=== PATIENT | male | born 1945 | race Caucasian/White ===

== ENCOUNTER → 2018-10-22 | Outpatient (CLI) | payer MEDICARE | END | disposition home or self-care (01) | LOC: RAH 14:18 | PROVIDERS: ATTEND Internal Medicine Critical Care Medicine | DX: M25.552 Pain in left hip (principal) | CPT/HCPCS: 73502 ==

== ENCOUNTER → 2018-11-16 | Outpatient (CLI) | payer MEDICARE | END | disposition home or self-care (01) | LOC: RAH 13:37 | PROVIDERS: ATTEND Internal Medicine Critical Care Medicine | DX: M25.452 Effusion, left hip (principal) | CPT/HCPCS: 73721 ==

== ENCOUNTER 2019-02-17 06:36 | Day surgery (SDC) | payer MEDICARE ==
[2019-02-11 16:34] VITALS: BP 176/74
[2019-02-11 16:36] LABS: EOSINOPHILS % (AUTO) 4.1 % (0.0-8.0); HEMATOCRIT 38.1 % (42-54); LYMPHOCYTES % (AUTO) 25.2 % (21.0-51.0); MEAN CORPUSCULAR HEMOGLOBIN 31.5 pg (27.0-33.0); MEAN CORPUSCULAR HGB CONC 34.6 g/dL (32.0-36.0); MEAN CORPUSCULAR VOLUME 91.1 fL (79-99); MONOCYTES % (AUTO) 9.2 % (3.0-13.0); NEUTROPHILS % (AUTO) 60.5 % (40.0-77.0); PLATELET COUNT (AUTO) 205 K/uL (130-400); RED BLOOD CELL COUNT(AUTO) 4.19 MIL/uL (4.50-6.20); RED CELL DISTRIBUTION WIDTH 14.1 % (11.0-15.5); WHITE BLOOD COUNT (AUTO) 8.2 K/uL (4.8-10.8)
[2019-02-11 16:55] LABS: CREATININE 0.9 mg/dL (0.5-1.5); POTASSIUM 3.9 mmol/L (3.5-5.1)
[~2019-02-17] VITALS: Ht 180.3 cm; Wt 111.3 kg
[2019-02-17] VITALS (19 sets, daily range): BP systolic 123–145; BP diastolic 58–72
[~2019-02-17 06:36] MED LIST: AMLO10TA7 PO; CARV6.25 PO; CEFAZOLIN 3GM /D5W 100ML 100 ML IV SCH; EPIN0.3P2 IM; LEVOTHYROXINE PO; LOSA1TAB54 PO; OMEP20CA10 PO; SULFAMETHOXAZOL PO
[2019-02-17] MEDS ORDERED: LIDOCAINE PF 2% 5ML ABBOJECT ONE (07:22)
[2019-02-17] MEDS ORDERED: FENTANYL CITRATE PF 50 MCG/1 ML 2ML VIAL ONE (07:22)
[2019-02-17] MEDS ORDERED: SUCCINYLCHOLINE 200MG/10ML SYR ONE (07:22)
[2019-02-17] MEDS ORDERED: ROCURONIUM 10MG/1ML SYR 10 MG/ML ML ONE (07:22)
[2019-02-17] MEDS ORDERED: PROPOFOL 10 MG/ML 20ML VIAL IV ONE (07:22)
--- NOTE | 2019-02-17 07:30 | NUR ---
POTENTIAL FOR INFECTION: SHAVED RIGHT SHOULDER FOLLOWED BY WIPING WITH BUSTER: 2% CHLORHEXIDINE GLUCONATE CLOTH PATIENT PRE-OP SKIN PREP PER ALEIDA BANUELOS
[2019-02-17] MEDS ORDERED: ROPIVACAINE 0.5% 5MG/ML 30ML IJ ONE (07:33)
[2019-02-17] MEDS ORDERED: LACTATED RINGERS 1000ML 1,000 ML IV ONE (07:45)
[2019-02-17] MEDS: CEFAZOLIN SODIUM 1 GM VIAL ONE ×2 (07:55→09:30)
[2019-02-17] MEDS ORDERED: GLYCOPYRROLATE 1 MG/5 ML SYRINGE ONE (09:45)
[2019-02-17] MEDS ORDERED: NEOSTIGMINE 5MG/5ML SYR IV ONE (10:43)
[2019-02-17] MEDS ORDERED: KETOROLAC TROMETHAMINE 30MG/ML ONE (10:46)
[2019-02-17] MEDS ORDERED: ONDANSETRON HCL 4 MG/2 ML VIAL ONE (10:46)
[2019-02-17] MEDS ORDERED: MELO-108 PO (11:18)
[2019-02-17] MEDS ORDERED: TRAM50TA4 PO (11:18)
[2019-02-17] MEDS ORDERED: GABA-529 PO (11:18)
--- NOTE | 2019-02-17 12:12 | NUR ---
RECEIVE PT RECEIVED FROM PACU VIA STRETCHER AWAKE ALERT ORIENTED X3. DRESSING TO RIGHT SHOULDER DRY AND INTACT, NO BLEEDING NOTED. SHOULDER IMMOBILIZER IN PLACE RIGHT ARM. PT STATES HE STILL FEELS NUMB TO RIGHT ARM/SHOULDER. PT ABLE TO WIGGLE FINGERS, RIGHT HAND, CAPILLARY REFILLS BRISK, PULSES PRESENT.
--- NOTE | 2019-02-17 13:05 | NUR ---
NOTE PROSPER PAK HERE TO EDUCATE PT AND GIRLFRIEND REGARDING SHOULDER IMMOBILIZER. BOTH PT AND GIRLFRIEND VERBALIZED UNDERSTANDING.
--- NOTE | 2019-02-17 13:20 | NUR ---
DISCHARGE PT DISCHARGED VIA WHEELCHAIR WITH GIRLFRIEND. PT STABLE. NO COMPLAINTS MADE. DRESSING TO RIGHT SHOULDER REMAINS DRY AND INTACT, NO BLEEDING NOTED. DISCHARGE INSTRUCTIONS GIVEN TO PT AND GIRLFRIEND, VERBALIZED UNDERSTANDING.
== END 2019-02-17 13:20 | disposition home or self-care (01) ==
LOC: DAH 06:36
PROVIDERS: ATTEND Orthopaedic Surgery
DX: M75.101 Unspecified rotator cuff tear or rupture of right shoulder, not specified as traumatic (principal); Z68.32 Body mass index [BMI] 32.0-32.9, adult; Z79.899 Other long term (current) drug therapy; Z88.8 Allergy status to other drugs, medicaments and biological substances; I10 Essential (primary) hypertension; E66.9 Obesity, unspecified; Z98.890 Other specified postprocedural states; J44.9 Chronic obstructive pulmonary disease, unspecified; K21.9 Gastro-esophageal reflux disease without esophagitis
CPT/HCPCS: 29826; 29827; 29828; 36415; 80048; 85025; 93005; A4215; A4218; A4248; A4452; A4649 ×5; C1713 ×3; J0330; J0690; J1885; J2001; J2405; J2704; J2710; J2795; J3010; J3490; J7120 ×2

== ENCOUNTER → 2021-10-15 | Outpatient (CLI) | payer MEDICARE ==
[~2021-10-15] MED LIST changes: +AMLO-258 PO; -AMLO10TA7 PO; -CEFAZOLIN 3GM /D5W 100ML 100 ML IV SCH; +GABA-529 PO; +MELO-108 PO; -OMEP20CA10 PO; +OMEP20CA12 PO; +TRAM50TA4 PO
== END | disposition home or self-care (01) ==
LOC: OIH 09:18
PROVIDERS: ATTEND Internal Medicine Cardiovascular Disease
DX: I35.0 Nonrheumatic aortic (valve) stenosis (principal); E66.9 Obesity, unspecified; E78.5 Hyperlipidemia, unspecified
CPT/HCPCS: 93306; 93356

== ENCOUNTER 2021-12-05 16:39 | Emergency (ER) | payer MEDICARE ==
[~2021-12-05] VITALS: Ht 182.9 cm; Wt 115.7 kg
[~2021-12-05 16:39] MED LIST changes: +AMIO200T44 PO; -AMLO-258 PO; +ASPI-1197 PO; -CARV6.25 PO; -EPIN0.3P2 IM; +EZET10TA48 PO; +FURO20TA6 PO; -GABA-529 PO; -LOSA1TAB54 PO; -MELO-108 PO; +METO50 PO; +SIMV-43 PO; -SULFAMETHOXAZOL PO; -TRAM50TA4 PO
[2021-12-05 18:20] LABS: APPEARANCE,URINE Clear (CLEAR); BILIRUBIN,URINE Negative (NEGATIVE); COLOR,URINE Yellow (YELLOW); GLUCOSE, URINE (UA) Negative (NEGATIVE); KETONES,URINE Negative (NEGATIVE); LEUKOCYTE ESTERASE ,URINE Trace (NEGATIVE); NITRATE,URINE Negative (NEGATIVE); OCCULT BLOOD,URINE Negative (NEGATIVE); PROTEIN,URINE Negative (NEGATIVE)
[2021-12-05 19:12] LABS: BACTERIA,URINE None Seen /HPF (None Seen); RBC,URINE None Seen /HPF (0-1); SQUAMOUS EPITHELIAL CELL,UR None Seen /HPF (0-2); WBC,URINE 0-1 /HPF (0-1)
[2021-12-05 19:17] LABS: BASOPHILS % (AUTO) 0.6 % (0.0-5.0); CREATININE 1.1 mg/dL (0.5-1.5); EOSINOPHILS % (AUTO) 10.4 % (0.0-8.0); HEMATOCRIT 29.2 % (42-54); LYMPHOCYTES % (AUTO) 14.7 % (21.0-51.0); MEAN CORPUSCULAR HEMOGLOBIN 29.7 pg (27.0-33.0); MEAN CORPUSCULAR HGB CONC 32.2 g/dL (32.0-36.0); MEAN CORPUSCULAR VOLUME 92.4 fL (79-99); MONOCYTES % (AUTO) 7.4 % (3.0-13.0); NEUTROPHILS % (AUTO) 65.7 % (40.0-77.0); PLATELET COUNT (AUTO) 348 K/uL (130-400); POTASSIUM 4.7 mmol/L (3.5-5.1); RED BLOOD CELL COUNT(AUTO) 3.16 MIL/uL (4.50-6.20); RED CELL DISTRIBUTION WIDTH 14.4 % (11.0-15.5); WHITE BLOOD COUNT (AUTO) 13.9 K/uL (4.8-10.8)
[2021-12-05 19:22] LABS: BILIRUBIN,TOTAL 1.3 mg/dL (0.2-1.0); TOTAL PROTEIN, SERUM 6.9 g/dL (6.0-8.3)
[2021-12-05 19:32] LABS: INR 1.1 (0.85-1.15); PROTHROMBIN TIME 11.9 SEC (9.6-11.6)
[2021-12-05 19:33] LABS: PARTIAL THROMBOPLASTIN TIME 23.4 SEC (26.3-35.5)
[2021-12-05 20:02] LABS: B-TYPE NATRIURETIC PEPTIDE 553 pg/mL (0-100)
[2021-12-05] MEDS ORDERED: IOHEXOL-350 75 ML VIAL IV ONE (21:16)
[2021-12-05] MEDS ORDERED: IOHEXOL-350 50ML VIAL IV ONE (21:34)
[2021-12-05 22:30] VITALS: BP 147/54
[2021-12-05] MEDS ORDERED: FUROSEMIDE 40MG VIAL IV ONE (23:00)
== END 2021-12-05 23:31 | disposition home or self-care (01) ==
LOC: EDH 16:39
DX: I31.3 Pericardial effusion (noninflammatory) (principal); J90 Pleural effusion, not elsewhere classified; R06.00 Dyspnea, unspecified; R60.0 Localized edema; Z20.822 Contact with and (suspected) exposure to COVID-19; Z95.1 Presence of aortocoronary bypass graft; I25.10 Atherosclerotic heart disease of native coronary artery without angina pectoris; Z79.82 Long term (current) use of aspirin; Z79.899 Other long term (current) drug therapy
CPT/HCPCS: 36415; 71045; 71275; 80053; 81001; 82550; 83880; 84484; 85025; 85378; 85610; 85730; 87635; 93005; 93970; 96374; 99285; C9803; J1940; Q9967 ×2

== ENCOUNTER 2022-11-24 09:00 | Observation (INO) | payer MEDICARE ==
[~2022-11-24] VITALS: Ht 182.9 cm; Wt 117.5 kg
[2022-11-24 11:28] LABS: BASOPHILS % (AUTO) 1.1 % (0.0-5.0); EOSINOPHILS % (AUTO) 3.8 % (0.0-8.0); HEMATOCRIT 42.8 % (42-54); LYMPHOCYTES % (AUTO) 33.2 % (21.0-51.0); MEAN CORPUSCULAR HEMOGLOBIN 31.2 pg (27.0-33.0); MEAN CORPUSCULAR HGB CONC 32.9 g/dL (32.0-36.0); MEAN CORPUSCULAR VOLUME 94.7 fL (79-99); MONOCYTES % (AUTO) 8.7 % (3.0-13.0); PLATELET COUNT (AUTO) 159 K/uL (130-400); RED BLOOD CELL COUNT(AUTO) 4.52 MIL/uL (4.50-6.20); RED CELL DISTRIBUTION WIDTH 13.7 % (11.0-15.5); WHITE BLOOD COUNT (AUTO) 6.1 K/uL (4.8-10.8)
[2022-11-24 11:33] LABS: POTASSIUM 4.4 mmol/L (3.5-5.1)
[2022-11-26 09:00] VITALS: BP 204/83
[2022-11-26] MEDS ORDERED: PANT40TA54 PO (09:36)
[2022-11-26] MEDS ORDERED: ROSU20TA31 PO (09:36)
[2022-11-26] MEDS ORDERED: LEVO175T64 PO (09:36)
[2022-11-26] MEDS ORDERED: FURO40TA5 PO (09:36)
[2022-11-26] MEDS ORDERED: APIX5TAB PO (09:36)
[2022-11-26] MEDS ORDERED: METO-391 PO (09:36)
[2022-11-27] VITALS (24 sets, daily range): BP systolic 134–185; BP diastolic 61–91
[2022-11-27] MEDS ORDERED: CEFAZOLIN SODIUM 1 GM VIAL ONE ×3 (04:53→11:56)
[2022-11-27] MEDS ORDERED: BUPIVACAINE/EPI/PF 0.5% 30ML VIAL IJ ONE ×2 (04:54→08:16)
[2022-11-27] MEDS ORDERED: MORPHINE PF 100MG/10ML AMP IV ONE (04:54)
[2022-11-27] MEDS ORDERED: THROMBIN-JMI 5000 UNIT/VIAL TP ONE (04:54)
[2022-11-27] MEDS ORDERED: THROMBIN-JMI 20000 UNIT KIT TP ONE (04:57)
[2022-11-27] MEDS ORDERED: LACTATED RINGERS 1000ML 1,000 ML IV ONE (06:25)
[2022-11-27] MEDS ORDERED: CEFAZOLIN SODIUM 2 GM VIAL ONE (06:25)
[2022-11-27] MEDS ORDERED: MIDAZOLAM HCL 1 MG/ML 2ML VIAL ONE (06:58)
[2022-11-27] MEDS ORDERED: GLYCOPYRROLATE 1 MG/5 ML SYRINGE ONE ×2 (06:58→09:01)
[2022-11-27] MEDS ORDERED: PROPOFOL 10 MG/ML 20ML VIAL IV ONE ×2 (06:58→07:46)
[2022-11-27] MEDS ORDERED: DEXAMETHASONE SOD PHOSPHATE 10MG/ML 1ML VIAL ONE ×2 (06:58→07:01)
[2022-11-27] MEDS ORDERED: SUCCINYLCHOLINE CHLORIDE 20 MG/ML 10 ML VIAL ONE (06:58)
[2022-11-27] MEDS ORDERED: LIDOCAINE PF 100MG/5ML (2%) SYRINGE 5ML ONE (06:58)
[2022-11-27] MEDS ORDERED: ROCURONIUM 10MG/1ML SYR 10 MG/ML ML ONE (06:59)
[2022-11-27] MEDS ORDERED: FENTANYL CITRATE PF 50 MCG/1 ML 2ML VIAL ONE ×3 (06:59→10:29)
[2022-11-27] MEDS ORDERED: ONDANSETRON 4MG INJ ONE ×2 (06:59→11:07)
[2022-11-27] MEDS ORDERED: NEOSTIGMINE 5MG/5ML SYR IV ONE (06:59)
[2022-11-27] MEDS ORDERED: EPHEDRINE SULFATE 50 MG/ML AMPULE ONE (07:02)
[2022-11-27] MEDS ORDERED: CEFAZOLIN SODIUM 3 GM VIAL IV ONE (07:55)
[2022-11-27] MEDS ORDERED: THROMBIN 20000 UNITS/VIAL POWDER TP ONE (08:26)
[2022-11-27] MEDS ORDERED: PHENYLEPHRINE HCL 10 MG/ML 1ML VIAL IV ONE (11:10)
[2022-11-27] MEDS ORDERED: ARTIFICIAL TEARS 3.5 GM OINTMENT ONE (11:40)
[2022-11-27] MEDS ORDERED: 0.9%NACL 10ML VIAL IVP PRN (12:00)
[2022-11-27] MEDS ORDERED: MORPHINE 2 MG SYG IVP PRN (12:00)
[2022-11-27] MEDS: LACTATED RINGERS 1000ML 1,000 ML IV SCH (12:00)
[2022-11-27] MEDS ORDERED: HYDROCODONE/ACETAMINOPHEN 5/325 MG TAB PO PRN (12:00)
[2022-11-27] MEDS ORDERED: PROMETHAZINE HCL 25 MG/ML 1ML AMPULE IM PRN (12:00)
[2022-11-27] MEDS: DEXAMETHASONE SOD PHOSPHATE 4 MG/ML 1ML VIAL IVP SCH ×2 (12:00→17:50)
[2022-11-27] MEDS ORDERED: MEPERIDINE-PF 25 MG/ML SYG ONE (12:36)
[2022-11-27] MEDS ORDERED: HYDRALAZINE 20MG/ML VIAL ONE (12:50)
[2022-11-27] MEDS ORDERED: CEFAZOLIN SODIUM 3 GM in DEXTROSE 5%-WATER 100 ML IVPB SCH (18:00)
[2022-11-27] MEDS ORDERED: ATORVASTATIN 40 MG TABLET PO SCH (21:00)
[2022-11-28] VITALS: BP 155/74
[2022-11-28] MEDS: DEXAMETHASONE SOD PHOSPHATE 4 MG/ML 1ML VIAL IVP SCH ×2 (00:04→06:06)
[2022-11-28] MEDS: LACTATED RINGERS 1000ML 1,000 ML IV SCH (01:20)
[2022-11-28 03:48] VITALS: BP 171/76
[2022-11-28] MEDS ORDERED: LEVOTHYROXINE 75 MCG TABLET PO SCH ×3 (06:30→09:00)
[2022-11-28] MEDS ORDERED: LEVOTHYROXINE 100 MCG TABLET PO SCH ×3 (06:30→09:00)
[2022-11-28 08:00] VITALS: BP 178/81
[2022-11-28] MEDS ORDERED: PANTOPRAZOLE 40 MG TAB DR PO SCH (09:00)
[2022-11-28] MEDS ORDERED: METOPROLOL SUCCINATE 50 MG TAB.SR.24H PO SCH (09:00)
[2022-11-28] MEDS ORDERED: FUROSEMIDE 40 MG TABLET PO SCH (09:00)
== END 2022-11-28 10:15 | disposition home or self-care (01) ==
LOC: EDSTATUS 11:00 → DAHIP 11-27 05:40 → 4BH 11-27 13:54
PROVIDERS: ADMIT Neurological Surgery; ATTEND Neurological Surgery
DX: M48.07 Spinal stenosis, lumbosacral region (principal); Z20.822 Contact with and (suspected) exposure to COVID-19; J44.9 Chronic obstructive pulmonary disease, unspecified; E66.9 Obesity, unspecified; I25.10 Atherosclerotic heart disease of native coronary artery without angina pectoris; E03.9 Hypothyroidism, unspecified; Z79.899 Other long term (current) drug therapy; Z95.1 Presence of aortocoronary bypass graft
CPT/HCPCS: 80048; 85025; 87426; 36415; 71045; 63047; 63048 ×2; 96365; 96375; 82948; 72020; 96376; A6260; J1100 ×6; G0378 ×21; G0379; A4663; J7120 ×3; A4344; J0690 ×6; J3010 ×3; J3490 ×6; J2710; J0330; J2001; J0360; J2250; J7060; J2704 ×2; J2274; J2405 ×2; J2175; J2370; A4649 ×4; A4215; A4223; A4222; A4221; A4600; A4510

== ENCOUNTER → 2023-12-17 | Outpatient (CLI) | payer MEDICARE ==
[~2023-12-17] MED LIST changes: -AMIO200T44 PO; +APIX5TAB PO; -ASPI-1197 PO; -EZET10TA48 PO; -FURO20TA6 PO; +FURO40TA5 PO; +LEVO175T64 PO; -LEVOTHYROXINE PO; +METO-391 PO; -METO50 PO; -OMEP20CA12 PO; +PANT40TA54 PO; +ROSU20TA73 PO; -SIMV-43 PO
== END | disposition home or self-care (01) ==
LOC: SHCH 13:10
PROVIDERS: ATTEND Internal Medicine Cardiovascular Disease
DX: I87.2 Venous insufficiency (chronic) (peripheral) (principal); I70.293 Other atherosclerosis of native arteries of extremities, bilateral legs; I35.8 Other nonrheumatic aortic valve disorders; I11.9 Hypertensive heart disease without heart failure; R60.9 Edema, unspecified; E78.5 Hyperlipidemia, unspecified; Z95.1 Presence of aortocoronary bypass graft
CPT/HCPCS: 93306; 93925; 93970